=== PATIENT | female | born 1980 | race Caucasian/White ===

== ENCOUNTER → 2017-11-05 | Outpatient (CLI) | payer OTHER ==
[~2017-11-05] MED LIST: POTCHL20ER PO; PROP40 PO
== END | disposition home or self-care (01) ==
LOC: LAB SHORT 11:51 → LAB 11:51
PROVIDERS: Obstetrics & Gynecology
DX: Z01.419 Encounter for gynecological examination (general) (routine) without abnormal findings (principal)
CPT/HCPCS: 87624; G0123

== ENCOUNTER 2020-08-11 19:18 | Observation (INO) | payer OTHER ==
[~2020-08-11] VITALS: Ht 177.8 cm; Wt 61.2 kg
[2020-08-11 19:46] LABS: BASOPHILS ABSOLUTE AUTO 0.07 K/mm3 (0.00-0.23); BASOPHILS PERCENT AUTO 0 % (0-2); EOSINOPHILS ABSOLUTE AUTO 0.32 K/mm3 (0.00-0.68); EOSINOPHILS PERCENT AUTO 2 % (0-6); Hemoglobin 14.2 g/dL (11.5-16.0); IMMATURE GRAN ABSOLUTE AUTO 0.05 K/mm3 (0.00-0.10); IMMATURE GRAN PERCENT AUTO 0 % (0-1); LYMPHOCYTES ABSOLUTE AUTO 3.41 K/mm3 (0.84-5.20); LYMPHOCYTES PERCENT AUTO 21 % (21-46); MONOCYTES ABSOLUTE AUTO 1.09 K/mm3 (0.16-1.47); MONOCYTES PERCENT AUTO 7 % (4-13); Mean Corpuscular HGB 29.8 pg (26.0-34.0); Mean Corpuscular Volume 90 fL (80-100); Mean Platelet Volume 9.5 fL (9.1-12.4); NEUTROPHILS ABSOLUTE AUTO 11.44 K/mm3 (1.96-9.15); NEUTROPHILS PERCENT AUTO 70 % (41-73); Platelet Count 304 K/mm3 (150-400); RDW Coefficient Variation 11.9 % (11.7-14.2); Red Blood Cell Count 4.77 M/mm3 (3.80-5.20); White Blood Cell Count 16.38 K/mm3 (4.00-11.30)
[2020-08-11 20:05] LABS: Alanine Aminotransfer (ALT/SGP 20 U/L (12-78); Albumin, Blood 3.7 g/dL (3.4-5.0); Albumin/Globulin Ratio 0.8 (0.8-1.8); Alk Phos 153 U/L (50-136); Anion Gap 5 mmol/L (6-16); Aspartate Aminotrans (AST/SGOT 11 U/L (12-37); Bilirubin, Total 0.5 mg/dL (0.1-1.0); Blood Urea Nitrogen 10 mg/dL (8-24); Bun/Creatinine Ratio 14.1 (12.0-20.0); CO2, Blood 29 mmol/L (21-32); Calcium, Blood 9.1 mg/dL (8.5-10.1); Chloride, Blood 105 mmol/L (98-108); Creatinine, Blood 0.71 mg/dL (0.40-1.00); Globulin, Blood 4.6 g/dL (2.2-4.0); Glomerular Filtration Rate >60 (60-); Glucose, Blood 99 mg/dL (70-99); Potassium, Blood 3.1 mmol/L (3.5-5.5); Sodium, Blood 139 mmol/L (136-145); Total Protein, Blood 8.3 g/dL (6.4-8.2)
[2020-08-11 22:43] LABS: Source, Urine Clean Catch
[2020-08-11 22:45] LABS: Bilirubin, Urine Neg (Neg); Blood, Urine Neg (Neg); Glucose Qualitative, Urine Neg (Neg); Ketones, Urine 1+ (Neg); Leukocyte Esterase, Urine Neg (Neg); Nitrite, Urine Neg (Neg); Protein, Urine Neg (Neg); Urobilinogen, Urine NORM (Normal)
[2020-08-11 22:56] LABS: Appearance, Urine Clear (Clear); Color, Urine Yellow (P-Yellow)
--- NOTE | 2020-08-12 03:25 | NUR ---
PATIENT STATED SHE WAS UNCOMFORTABLE MOST OF NIGHT. ABD TENDER RLQ TO RIGHT FLANK. BOWEL TONES MORE HYPERACTIVE IN THIS AREA THAN OTHER QUADS. 2 DOSES OF 1MG OF DILAUDID GIVEN WITH INTERMITTANT RELIEF. STILL NO BM SINCE 08/10 () TOLERATING IV ANTIBIOTICS WITHOUT DIFFICULTLY
[2020-08-12 05:19] LABS: BASOPHILS ABSOLUTE AUTO 0.05 K/mm3 (0.00-0.23); BASOPHILS PERCENT AUTO 1 % (0-2); EOSINOPHILS ABSOLUTE AUTO 0.34 K/mm3 (0.00-0.68); EOSINOPHILS PERCENT AUTO 3 % (0-6); Hematocrit 39.5 % (33.0-51.0); Hemoglobin 12.6 g/dL (11.5-16.0); IMMATURE GRAN ABSOLUTE AUTO 0.03 K/mm3 (0.00-0.10); IMMATURE GRAN PERCENT AUTO 0 % (0-1); LYMPHOCYTES PERCENT AUTO 26 % (21-46); MONOCYTES ABSOLUTE AUTO 0.93 K/mm3 (0.16-1.47); MONOCYTES PERCENT AUTO 9 % (4-13); Mean Corpuscular HGB 29.4 pg (26.0-34.0); Mean Corpuscular HGB Conc 31.9 g/dL (31.5-36.5); Mean Corpuscular Volume 92 fL (80-100); Mean Platelet Volume 9.8 fL (9.1-12.4); NEUTROPHILS ABSOLUTE AUTO 6.49 K/mm3 (1.96-9.15); NEUTROPHILS PERCENT AUTO 61 % (41-73); Platelet Count 259 K/mm3 (150-400); RDW Standard Deviation 41.1 fL (35.1-46.3); Red Blood Cell Count 4.28 M/mm3 (3.80-5.20); White Blood Cell Count 10.64 K/mm3 (4.00-11.30)
[2020-08-12 05:42] LABS: Anion Gap 7 mmol/L (6-16); Blood Urea Nitrogen 6 mg/dL (8-24); Bun/Creatinine Ratio 8.5 (12.0-20.0); CO2, Blood 22 mmol/L (21-32); Calcium, Blood 8.4 mg/dL (8.5-10.1); Chloride, Blood 111 mmol/L (98-108); Creatinine, Blood 0.71 mg/dL (0.40-1.00); Glomerular Filtration Rate >60 (60-); Glucose, Blood 98 mg/dL (70-99); Sodium, Blood 140 mmol/L (136-145)
--- NOTE | 2020-08-12 16:41 | NUR ---
Shift Summary A/Ox4, pleasant and cooperative with care. Up in room independently. When up and moving, patient complains of 9/10 pain. With rests and minimal movement, RLQ abdominal pain is approx. 4/10. Medicated for pain x 2 with minimal relief. Diet advanced to full liq by Dr. Wilkinson, patient tolerating this well. LR @ 150 mLs/hr, voiding good. Dr. Bejarano consulted. Per discussion with DIANA Presley, plan is for patient to follow GI outpatient sometime next week for an endoscopy and then f/u with a wildlife forensic geneticist. XAVIER.
--- NOTE | 2020-08-12 19:00 | NUR ---
ASSUMED CARE RECEIVED REPORT FROM ARLETTE GUZMAN. PT RESTING IN BED, IN NO ACUTE DISTRESS. REPORTS SHARP, STABBING RLQ ABD PAIN, WILL MEDICATED PER EMAR. NO OTHER ACUTE NEEDS ASSESSED AT THIS TIME, CALL LIGHT, POSSESSIONS IN REACH, CONTINUE TO MONITOR.
[2020-08-13 04:36] LABS: BASOPHILS ABSOLUTE AUTO 0.06 K/mm3 (0.00-0.23); BASOPHILS PERCENT AUTO 1 % (0-2); EOSINOPHILS ABSOLUTE AUTO 0.36 K/mm3 (0.00-0.68); EOSINOPHILS PERCENT AUTO 5 % (0-6); Hematocrit 36.4 % (33.0-51.0); Hemoglobin 11.5 g/dL (11.5-16.0); IMMATURE GRAN ABSOLUTE AUTO 0.02 K/mm3 (0.00-0.10); IMMATURE GRAN PERCENT AUTO 0 % (0-1); LYMPHOCYTES ABSOLUTE AUTO 2.52 K/mm3 (0.84-5.20); LYMPHOCYTES PERCENT AUTO 33 % (21-46); MONOCYTES ABSOLUTE AUTO 0.66 K/mm3 (0.16-1.47); MONOCYTES PERCENT AUTO 9 % (4-13); Mean Corpuscular HGB 29.5 pg (26.0-34.0); Mean Corpuscular HGB Conc 31.6 g/dL (31.5-36.5); Mean Corpuscular Volume 93 fL (80-100); Mean Platelet Volume 9.4 fL (9.1-12.4); NEUTROPHILS ABSOLUTE AUTO 4.07 K/mm3 (1.96-9.15); NEUTROPHILS PERCENT AUTO 53 % (41-73); Platelet Count 232 K/mm3 (150-400); RDW Standard Deviation 41.6 fL (35.1-46.3); White Blood Cell Count 7.69 K/mm3 (4.00-11.30)
[2020-08-13 04:56] LABS: Alanine Aminotransfer (ALT/SGP 16 U/L (12-78); Albumin, Blood 2.7 g/dL (3.4-5.0); Albumin/Globulin Ratio 0.8 (0.8-1.8); Alk Phos 106 U/L (50-136); Anion Gap 5 mmol/L (6-16); Aspartate Aminotrans (AST/SGOT 11 U/L (12-37); Bilirubin, Total 0.4 mg/dL (0.1-1.0); Blood Urea Nitrogen 6 mg/dL (8-24); Bun/Creatinine Ratio 7.9 (12.0-20.0); CO2, Blood 25 mmol/L (21-32); Calcium, Blood 8.1 mg/dL (8.5-10.1); Chloride, Blood 110 mmol/L (98-108); Creatinine, Blood 0.76 mg/dL (0.40-1.00); Globulin, Blood 3.5 g/dL (2.2-4.0); Glomerular Filtration Rate >60 (60-); Glucose, Blood 103 mg/dL (70-99); Sodium, Blood 140 mmol/L (136-145); Total Protein, Blood 6.2 g/dL (6.4-8.2)
--- NOTE | 2020-08-13 05:45 | NUR ---
SHIFT SUMMARY PT RESTING COMFORTABLY, IN NO ACUTE DISTRESS. SLEPT T/O MUCH OF THE NIGHT, NO ACUTE CHANGES IN CONDITION NOTED. TOLERATED FULL LIQUID DIET FAIRLY, STATES THAT SHE FEELS LIKE IT WORSENS HER EPISODES OF NAUSEA; NAUSEA RELIEVED BY MEDS PER EMAR. PAIN WELL-CONTROLLED. VS REVIEWED,WNL. NO ACUTE NEEDS ASSESSED AT THIS TIME. CALL LIGHT, POSSESSIONS IN REACH, BED IN LOW POSITION. INDEPENDENT IN ROOM. CONTINUE TO MONITOR UNTIL REPORT GIVEN TO DAY RN.
[2020-08-13] MEDS ORDERED: AUGMENTIN250 MG/5 M PO (09:57)
[2020-08-13] MEDS ORDERED: ONDA4ODT MM (09:58)
[2020-08-13] MEDS ORDERED: TRAM50 PO (09:58)
[2020-08-13] MEDS ORDERED: VISBIOME 112.51 EACH PO (09:59)
--- NOTE | 2020-08-13 12:09 | NUR ---
PT WAS DISCHARGED ALERT X4 AND ORIENTED WITH HER BELONGINGS AT SIDE. PT WAS AMBULATORY AND MADE NO COMPLAINTS. IV LINE WAS DC'S AND WNL. EDUCATION WAS PROVIDED ON FOLLOW UP APPOINTMENTS NEEDED.
== END 2020-08-13 11:07 | disposition home or self-care (01) ==
LOC: ER 19:18 → MEDS 23:12
PROVIDERS: Internal Medicine; Nurse Practitioner Acute Care; Physician Assistant; ADMIT Family Medicine
DX: A41.9 Sepsis, unspecified organism (principal); N83.11 Corpus luteum cyst of right ovary; R93.5 Abnormal findings on diagnostic imaging of other abdominal regions, including retroperitoneum; K58.1 Irritable bowel syndrome with constipation; K90.41 Non-celiac gluten sensitivity; F17.210 Nicotine dependence, cigarettes, uncomplicated; E87.6 Hypokalemia; Z84.81 Family history of carrier of genetic disease; Z80.0 Family history of malignant neoplasm of digestive organs
CPT/HCPCS: 36415; 74177; 80048; 80053; 81003; 81025; 83605; 83690; 85025; 85651; 87040; 96361; 96365-59; 96366; 96367; 96375; 96376; 99285-25; A9270; G0378; J0744; J1170; J2270; J2405; J7030; J7120; Q9967

== ENCOUNTER 2020-09-07 12:01 | Inpatient (IN) | payer OTHER ==
[~2020-09-07] VITALS: Ht 175.3 cm; Wt 59.9 kg
[~2020-09-07 12:01] MED LIST changes: +AUGMENTIN250 MG/5 M PO; +ONDA4ODT MM; +TRAM50 PO; +VISBIOME 112.51 EACH PO
[2020-09-07 12:41] LABS: BASOPHILS ABSOLUTE AUTO 0.06 K/mm3 (0.00-0.23); BASOPHILS PERCENT AUTO 1 % (0-2); EOSINOPHILS ABSOLUTE AUTO 0.32 K/mm3 (0.00-0.68); EOSINOPHILS PERCENT AUTO 3 % (0-6); Hematocrit 44.2 % (33.0-51.0); Hemoglobin 14.5 g/dL (11.5-16.0); IMMATURE GRAN ABSOLUTE AUTO 0.03 K/mm3 (0.00-0.10); IMMATURE GRAN PERCENT AUTO 0 % (0-1); LYMPHOCYTES ABSOLUTE AUTO 2.12 K/mm3 (0.84-5.20); LYMPHOCYTES PERCENT AUTO 18 % (21-46); MONOCYTES ABSOLUTE AUTO 0.79 K/mm3 (0.16-1.47); MONOCYTES PERCENT AUTO 7 % (4-13); Mean Corpuscular HGB 29.9 pg (26.0-34.0); Mean Corpuscular HGB Conc 32.8 g/dL (31.5-36.5); Mean Corpuscular Volume 91 fL (80-100); Mean Platelet Volume 9.3 fL (9.1-12.4); NEUTROPHILS ABSOLUTE AUTO 8.72 K/mm3 (1.96-9.15); NEUTROPHILS PERCENT AUTO 72 % (41-73); Platelet Count 258 K/mm3 (150-400); RDW Coefficient Variation 12.2 % (11.7-14.2); RDW Standard Deviation 40.9 fL (35.1-46.3); Red Blood Cell Count 4.85 M/mm3 (3.80-5.20); White Blood Cell Count 12.04 K/mm3 (4.00-11.30)
[2020-09-07 12:55] LABS: Alanine Aminotransfer (ALT/SGP 21 U/L (12-78); Albumin, Blood 3.9 g/dL (3.4-5.0); Albumin/Globulin Ratio 0.8 (0.8-1.8); Alk Phos 152 U/L (50-136); Anion Gap 9 mmol/L (6-16); Aspartate Aminotrans (AST/SGOT 13 U/L (12-37); Bilirubin, Total 0.4 mg/dL (0.1-1.0); Blood Urea Nitrogen 13 mg/dL (8-24); Bun/Creatinine Ratio 18.4 (12.0-20.0); CO2, Blood 26 mmol/L (21-32); Calcium, Blood 9.6 mg/dL (8.5-10.1); Chloride, Blood 103 mmol/L (98-108); Creatinine, Blood 0.71 mg/dL (0.40-1.00); Globulin, Blood 4.6 g/dL (2.2-4.0); Glomerular Filtration Rate >60 (60-); Glucose, Blood 85 mg/dL (70-99); Potassium, Blood 3.7 mmol/L (3.5-5.5); Sodium, Blood 138 mmol/L (136-145); Total Protein, Blood 8.5 g/dL (6.4-8.2)
--- NOTE | 2020-09-07 16:35 | NUR ---
ARRIVAL ARRIVES TO UNIT VIA W/C. ALERT, ORIENTED, PLEASANT. C/O ABD PAIN, CRAMPING & REPORTS NAUSEA HAS RESOLVED. REPORTS HAVING THESE S/S FOR 3 WEEKS & ONLY BEING ON CLEAR LQS & FEW FEW SOFT FOODS. DR LUND CONSULTED & AWAITING HIS VISIT.
[2020-09-07] MEDS ORDERED: PROBIOTIC1 EA13 PO (16:48)
--- NOTE | 2020-09-07 17:30 | NUR ---
DR LUND INTO SEE PT
[2020-09-07 22:13] LABS: Influenza A, PCR NEGATIVE (NEGATIVE); Influenza B, PCR NEGATIVE (NEGATIVE); Resp Syncytial Virus, PCR NEGATIVE (NEGATIVE); SARS-Cov-2 (COVID-19) PCR, MMC NEGATIVE (NEGATIVE)
--- NOTE | 2020-09-08 04:09 | NUR ---
SHIFT SUMMARY PT IS A/O X4, IND IN ROOM. PAIN MANAGED WITH 1MG IV DILAUDED PRN PER ORDERS. NAUSEA MANAGED WITH ZONFRAN Q6 PRN. PT HAS BEEN TOLERATING CLEAR LIQUIDS W/O NAUSEA OVERNIGHT. PLAN IS TO BE ON WATER AND ICE ONLY AT 0600 WITH GOLYTELY, THEN NPO AT 1100. PT RSTING IN BED AT THIS TIME, CALL LIGHT IN REACH.
[2020-09-08 06:17] LABS: BASOPHILS ABSOLUTE AUTO 0.04 K/mm3 (0.00-0.23); BASOPHILS PERCENT AUTO 0 % (0-2); EOSINOPHILS ABSOLUTE AUTO 0.34 K/mm3 (0.00-0.68); EOSINOPHILS PERCENT AUTO 3 % (0-6); Hematocrit 40.4 % (33.0-51.0); Hemoglobin 13.2 g/dL (11.5-16.0); IMMATURE GRAN ABSOLUTE AUTO 0.02 K/mm3 (0.00-0.10); IMMATURE GRAN PERCENT AUTO 0 % (0-1); LYMPHOCYTES ABSOLUTE AUTO 2.75 K/mm3 (0.84-5.20); LYMPHOCYTES PERCENT AUTO 26 % (21-46); MONOCYTES ABSOLUTE AUTO 1.06 K/mm3 (0.16-1.47); MONOCYTES PERCENT AUTO 10 % (4-13); Mean Corpuscular HGB 30.2 pg (26.0-34.0); Mean Corpuscular HGB Conc 32.7 g/dL (31.5-36.5); Mean Corpuscular Volume 92 fL (80-100); Mean Platelet Volume 9.3 fL (9.1-12.4); NEUTROPHILS ABSOLUTE AUTO 6.29 K/mm3 (1.96-9.15); NEUTROPHILS PERCENT AUTO 60 % (41-73); Platelet Count 229 K/mm3 (150-400); RDW Coefficient Variation 12.4 % (11.7-14.2); RDW Standard Deviation 42.5 fL (35.1-46.3); Red Blood Cell Count 4.37 M/mm3 (3.80-5.20)
[2020-09-08 06:34] LABS: Anion Gap 5 mmol/L (6-16); Blood Urea Nitrogen 7 mg/dL (8-24); Bun/Creatinine Ratio 10.1 (12.0-20.0); CO2, Blood 29 mmol/L (21-32); Calcium, Blood 8.9 mg/dL (8.5-10.1); Chloride, Blood 105 mmol/L (98-108); Glomerular Filtration Rate >60 (60-); Glucose, Blood 90 mg/dL (70-99); Potassium, Blood 4.2 mmol/L (3.5-5.5); Sodium, Blood 139 mmol/L (136-145)
--- NOTE | 2020-09-08 13:49 | NUR ---
CARE COORDINATION REFERRAL - ADMIT: 09/07/20 DISCHARGE: DX: ABDOMINAL PAIN CC: KWILCOX AISHA CALL: RESIDENCE: HOME CAREGIVER: SELF DX: HX OF AMPHETAMINE ABUSE, IBS, MOOD DISORDER, INSOMNIA DME: NONE CCM: NONE HOME HEALTH: NONE SUMMARY: ADMIT: 09/07/20
--- NOTE | 2020-09-08 14:28 | NUR ---
PT TRANSFERED TO [facility] VIA GURNY FROM FLOOR. History, Chart, Medications and Allergies reviewed before start of procedure. Lungs clear T/O to Auscultation. Patient confirms NPO status and agrees with scheduled surgery.
--- NOTE | 2020-09-08 14:45 | NUR ---
09/08/20 1445 Asif Shrestha PATIENT DETERMINED TO BE ASA APPROPRIATE FOR PROPOFOL SEDATION PRIOR TO START OF PROCEDURE BY DR. LUND 3-LEAD EKG REVIEWED WITH PHYSICIAN PRIOR TO START OF PROCEDURE. Patient to ENDO 1 History, Chart, Medications and Allergies reviewed before start of procedure. MONITOR INTACT WITH CONTINUOUS PULSE OXIMETRY AND INTERMITTENT BP. O2 VIA N/C INTACT THROUGHOUT SEDATION/PROCEDURE.
--- NOTE | 2020-09-08 18:38 | NUR ---
SHIFT SUMMARY PT A&OX4, VSS, S/P COLONOSCOPY, TATA REG DIET, AMBULATING INDEPENDENTLY IN ROOM, TO BRP, VOIDING WELL, MULTIPLE CLEAR BMS. PAIN MANAGED WITH 0.5 MG DILAUDID. WILL REPORT TO ONCOMING NOC RN.
--- NOTE | 2020-09-09 03:27 | NUR ---
SHIFT SUMMARY: ABDOMINAL PAIN/COLONOSCOPY PATIENT IS ALERT AND ORIENTED X4. VS ARE WNL AND ON RA. PATIENT HASN'T REQUESTED FOR PAIN MEDICATIONS THROUGHOUT SHIFT. SHE WAS TAKING 0.5 MG IV DILAUDID FOR DAYSHIFT YESTERDAY. TOLERATING PO INTAKE AND IS PASSING GAS. YESTERDAY SHE HAD MULTIPLE CLEAR BM'S. SHE IS INDEPENDANT IN THE ROOM. CALL LIGHT WITHIN REACH. THE PLAN IS TO TALK WITH DR. KLINE ABOUT WHAT THE PLAN IS FOR NUTRITION AND PAIN CONTROL.
--- NOTE | 2020-09-09 08:00 | NUR ---
pt req more pain meds pain 0.5 mg to be given earlier pt only had a half dose pt stated after eating that she gets worse pain
--- NOTE | 2020-09-09 09:33 | NUR ---
pt watching tv done eating her breakfast
--- NOTE | 2020-09-09 10:17 | NUR ---
DR KLINE BY TO SEE PT PLAN FOR CT AND WILL CHANGE DIET TO FULL LIQ
--- NOTE | 2020-09-09 12:31 | NUR ---
adrianap gillian given zofran 4 mg po given pt reported that after eating her full liquid diet that she had inc pain and became dizzy still awaiting ct
--- NOTE | 2020-09-09 16:07 | NUR ---
dr valdes by to see pt can only have ice water and ice chips plan for upper endo in am still has not had ct called imaging
--- NOTE | 2020-09-09 17:11 | NUR ---
dilaudid 1 mg ivp given pt back from ct scan
--- NOTE | 2020-09-10 03:15 | NUR ---
SHIFT SUMMARY: ABDOMINAL PAIN/COLONOSCOPY PATIENT IS ALERT AND ORIENTED X4. VS ARE WNL AND IS ON RA. PAIN IS CONTROLLED WITH 1MG OF DILAUDID. SHE IS STILL COMPLAINING OF RLQ ABD PAIN. SHE HAS BEEN HAVING WATER AND ICE CHIPS DURING THE NIGHT AND HAS BEEN TOLERATING THAT. SHE CALLS APPROPRIATELY. SHE HAS BEEN SLEEPING MOST OF THE NIGHT. PATIENT DENIES DIARRHEA SO FAR TONIGHT. CALL LIGHT WITHIN REACH. THE PLAN IS TO HAVE AN UPPER ENDOSCOPY TODAY.
--- NOTE | 2020-09-10 08:46 | NUR ---
PT INTO SDS VIA GURNEY FROM SURG FLOOR ROOM. History, Chart, Medications and Allergies reviewed before start of procedure.Patient confirms NPO status and agrees with scheduled surgery. Lungs clear T/O to Auscultation.IV ACCESS UPON ARRIVAL TO [facility] IN LEFT AC, PATENT, FLUSHES EASILY.
--- NOTE | 2020-09-10 09:04 | NUR ---
09/10/20 0904 KikiSocorro fallon Matt History, Chart, Medications and Allergies reviewed before start of procedure.Patient confirms NPO status and agrees with scheduled surgery.3-LEAD EKG REVIEWED WITH PHYSICIAN PRIOR TO START OF PROCEDURE.MONITOR INTACT WITH CONTINUOUS PULSE OXIMETRY AND INTERMITTENT BP.O2 VIA N/C INTACT THROUGHOUT SEDATION/PROCEDURE. Bite Block Placed.PATIENT DETERMINED TO BE ASA APPROPRIATE FOR PROPOFOL SEDATION PRIOR TO START OF PROCEDURE BY
--- NOTE | 2020-09-10 10:57 | NUR ---
PT ARRIVED BACK FROM HER PROCEDURE AT 0945. SHE IS DROWSY BUT ORIENTED AND WAKES WHEN SPOKEN TO. PT ON RA. RR EVEN AND UNLABORED. WILL CONTINUE TO MONITOR.
[2020-09-10] MEDS ORDERED: HYDR1TAB94 PO (15:28)
[2020-09-10] MEDS ORDERED: ONDA4 PO (15:28)
--- NOTE | 2020-09-10 16:31 | NUR ---
DISCHARGE PT PROVIDED WITH WRITTEN AND VERBAL DISCHARGE INSTRUCTIONS, SHE REPORTED UNDERSTANDING. PT PROVIDED PRESCRIPTION FOR PAIN MANAGMENT AT HOME. ARLEN CALLED TO [facility] PER PT REQUEST. PAIN MANAGED AT TIME OF DISCHARGE. PT EDUCATED ABOUT DIET AND FOODS THAT SUPPORT DIGESTIVE SYSTEM. PT REPORTED SHE PLANS TO KEEP A FOOD/SYMPTOM JOURNAL. PT AMBULATED OUT WITHOUT ASSISTANCE AT 1630.
--- NOTE | 2020-09-12 18:40 | NUR ---
ADMIT: 09/07/20 DISCHARGE: DX: Abdominal pain CC: kwilcox AISHA CALL: RESIDENCE: home CAREGIVER: self DX: hx of amphetamine abuse, IBS, mood disorder, insomnia DME: none CCM: none HOME HEALTH: none SUMMARY: Admit: 09/07/20 09/10/20 Discharge home. No follow up instructions per Dr Nicole on discharge . cp 09/09/20- per chart review with Dr. Nicole, pt is still have abdominal pain and he would like to have her observed longer. She could potentially be discharged from the hospital over the weekend. -trevor
== END 2020-09-10 16:30 | disposition home or self-care (01) | DRG 385 ==
LOC: ER 12:01 → ERHOLD 13:36 → SURS 13:36
PROVIDERS: Emergency Medicine; Internal Medicine Gastroenterology; ADMIT Internal Medicine
PROC: 0DBM8ZZ Excision of Descending Colon, Via Natural or Artificial Opening Endoscopic (ICD-10-PCS; 2020-09-08)
PROC: 0DBB8ZX Excision of Ileum, Via Natural or Artificial Opening Endoscopic, Diagnostic (ICD-10-PCS; 2020-09-08)
PROC: 0DBL8ZZ Excision of Transverse Colon, Via Natural or Artificial Opening Endoscopic (ICD-10-PCS; 2020-09-08)
PROC: 0DB68ZX Excision of Stomach, Via Natural or Artificial Opening Endoscopic, Diagnostic (ICD-10-PCS; 2020-09-10)
PROC: 0DB98ZX Excision of Duodenum, Via Natural or Artificial Opening Endoscopic, Diagnostic (ICD-10-PCS; principal; 2020-09-10 09:00)
PROC: 0DBA8ZX Excision of Jejunum, Via Natural or Artificial Opening Endoscopic, Diagnostic (ICD-10-PCS; 2020-09-10 09:00)
DX: K50.00 Crohn's disease of small intestine without complications (principal); E43 Unspecified severe protein-calorie malnutrition; Z68.1 Body mass index [BMI] 19.9 or less, adult; F12.10 Cannabis abuse, uncomplicated; F10.10 Alcohol abuse, uncomplicated; Z71.41 Alcohol abuse counseling and surveillance of alcoholic; Z71.51 Drug abuse counseling and surveillance of drug abuser; Z71.6 Tobacco abuse counseling; F17.210 Nicotine dependence, cigarettes, uncomplicated; F41.9 Anxiety disorder, unspecified; Z98.890 Other specified postprocedural states; D72.828 Other elevated white blood cell count; K63.5 Polyp of colon; Z20.822 Contact with and (suspected) exposure to COVID-19; K64.8 Other hemorrhoids; K57.30 Diverticulosis of large intestine without perforation or abscess without bleeding
CPT/HCPCS: 0241U; 36415; 74177; 80048; 80053; 81025; 85025; 85651; 86140; 88305; 88342; 96374; 96375; 99284-25; A9270; C9113; J1170; J2250; J2405; J2704; J7120; Q9967

== ENCOUNTER 2021-01-11 18:11 | Emergency (ER) | payer OTHER ==
[~2021-01-11] VITALS: Ht 175.3 cm; Wt 60.8 kg
[~2021-01-11 18:11] MED LIST changes: +HYDR1TAB94 PO; +ONDA4 PO; +PROBIOTIC1 EA13 PO
[2021-01-11] MEDS ORDERED: CEPH500 PO (18:35)
== END 2021-01-11 18:44 | disposition home or self-care (01) ==
LOC: ER 18:11
DX: L03.113 Cellulitis of right upper limb (principal); F17.200 Nicotine dependence, unspecified, uncomplicated; Z79.899 Other long term (current) drug therapy
CPT/HCPCS: 99282